=== PATIENT | female | born 1965 | race Caucasian/White ===

== ENCOUNTER 2018-10-01 17:30 | Outpatient (AMBR) | payer BC, SELFPAY ==
--- NOTE | 2018-09-25 08:16 | PT.OIERPT ---
PT OP Initial Eval Patient Information Visit Reasons: knee pain Medical Diagnosis: M17.11 Treatment Dx #1: R knee pain Start of Care: 09/25/18 Date of Onset: 2014 Initial Assessment Subjective Pt is 53 yr old female who c/o R knee pain. She tore the meniscus in 2014 and it was repaired and since then she has to wear a knee brace or she says she can't last all day. The knee swells and hurts at the end of the day. She goes to the gym every morning to do the elliptical for 15' but no leg machines. She denies pain today since it's early and she is a medical unit secretary. PMH: DM, HTN, meniscal repair 2014 R knee Imaging: X-ray, MRI in EMR, reviewed Pt goal: to get some pain relief in that knee Objective R knee AROM: Flexion: full Extension: full with hesitation and sometimes pain SLR: 45 deg Strength: L quads 4-/5 limited by patella compression pain, hamstrings 4+/5 Observation: B varus orientation Palpation: moderately TTP medial patella border and medial joint line and tibial plateau Special testing: Patella compression: positive Anterior drawer: negative Varus/Valgus: minimal gapping Falguni's: positive Assessment Pt presentation consistent with referring Dx of R knee OA with patella compression sensitivity. Pt has good ROM but quad strength is limited by patella sensitivity. These findings are consistent with X-ray results, moderate narrowing medial joint space right knee. Eval followed by [facility]P. Short Term and Intermediate Goals 1. Independent with [facility]P 2. Improved quad strength to 4+/5 3. Pt will squat to 75% depth x10 without increase in knee pain Treatment Plan 1. Manual therapy 2. Therex 3. Modalities as indicated, moist heat, ice, estim Frequency and Duration 2x a week for 6 weeks Certification Dates: 09/25/18 to 12/23/18 Office Procedures PT Procedures PT Date of Service: 09/25/18 OP PT Eval Mod Complex 30 minutes: Yes
--- NOTE | 2018-09-25 08:20 | PTNOTE_ITS ---
PT OP Initial Eval Patient Information Visit Reasons: knee pain Medical Diagnosis: M17.11 Treatment Dx #1: R knee pain Start of Care: 09/25/18 Date of Onset: 2014 Initial Assessment Subjective Pt is 53 yr old female who c/o R knee pain. She tore the meniscus in 2014 and it was repaired and since then she has to wear a knee brace or she says she can' t last all day. The knee swells and hurts at the end of the day. She goes to the gym every morning to do the elliptical for 15' but no leg machines. 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 PMH: DM, HTN, meniscal repair 2014 R knee Imaging: X-ray, MRI in EMR, reviewed Pt goal: to get some pain relief in that knee Objective R knee AROM: Flexion: full Extension: full with hesitation and sometimes pain SLR: 45 deg Strength: L quads 4-/5 limited by patella compression pain, hamstrings 4+/5 Observation: B varus orientation Palpation: moderately TTP medial patella border and medial joint line and tibial plateau Special testing: Patella compression: positive Anterior drawer: negative Varus/Valgus: minimal gapping Falguni's: positive Assessment Pt presentation consistent with referring Dx of R knee OA with patella compression sensitivity. Pt has good ROM but quad strength is limited by patella sensitivity. These findings are consistent with X-ray results, moderate narrowing medial joint space right knee. Eval followed by [facility]P. Short Term and Skilled Nursing Goals 1. Independent with [facility]P 2. Improved quad strength to 4+/5 3. Pt will squat to 75% depth x10 without increase in knee pain Treatment Plan 1. Manual therapy 2. Therex 3. Modalities as indicated, moist heat, ice, estim Frequency and Duration 2x a week for 6 weeks Certification Dates: 09/25/18 to 12/23/18 Office Procedures PT Procedures PT Date of Service: 09/25/18 OP PT Eval Mod Complex 30 minutes: Yes
--- NOTE | 2018-10-01 18:19 | PTNOTE_ITS ---
PT Outpatient Daily Note Date of Service: October 01, 2018 OP Daily Note Visit Reasons: knee pain Outpatient Physical Therapy Treatment Date: 10/01/18 Subjective: The R knee is hurting today. She did the elliptical this morning and then drove and then sits for most of the day and then drives home. Objective: See F/S for therex MT: STM with graston to medial joint line femoral condyle region, KTape to anterior knee x15' total Assessment: Very TTP over R medial femoral condyle and joint line, poor STM tolerance. Plan: Continue per POC Length of Time (minutes) of Treatment: 30 Minutes Office Procedures PT Procedures PT Date of Service: 09/25/18 OP PT Eval Mod Complex 30 minutes: Yes PT Procedures PT Date of Service: 10/01/18 Therapeutic Exercise 15 minutes: Yes Manual Crime Victim Specialist 15 minutes: Yes
== END 2018-10-04 23:59 | disposition home or self-care (01) ==
PROVIDERS: PCP Family Medicine; Referring Provider Family Medicine; Visit Provider Orthopaedic Surgery
DX: M25.561 Pain in right knee (principal)
CPT/HCPCS: 97110; 97140; 97162

== ENCOUNTER 2018-11-01 17:30 | Outpatient (AMBR) | payer OTHER, SELFPAY ==
--- NOTE | 2018-10-05 10:02 | PT.ODAYNRPT ---
PT Outpatient Daily Note Date of Service: October 05, 2018 OP Daily Note Visit Reasons: knee pain Outpatient Physical Therapy Treatment Date: 10/05/18 Subjective: pt states she goes to the gym almost everyday and notices her quads are tight. Objective: see flow sheet. Assessment: noticed during SLR plus ER of the R knee pt tends to flex the knee slightly and cued her to keep her extended. informed pt it could be due to tightness. pt demonstrates good mobility of the RLE. during STM using the thera bar noticed the quads were tight and pt did have some discomfort. demonstrated a quad stretch she could be doing prior to starting her gym session. pt understood and answered her questions. Plan: continue POC per PT. Length of Time (minutes) of Treatment: 30 Minutes Office Procedures PT Procedures PT Date of Service: 10/05/18 Therapeutic Exercise 30 minutes: Yes
--- NOTE | 2018-10-08 15:12 | PT.ODAYNRPT ---
PT Outpatient Daily Note Date of Service: October 08, 2018 OP Daily Note Visit Reasons: knee pain Outpatient Physical Therapy Treatment Date: 10/08/18 Subjective: pt reported feeling sore after last visit. pt still has the kinesio tape from the 1st day of PT as it has not fallen off. Objective: see flow sheet. Assessment: added new exercises for WB, weight shifting onto the RLE and strengthening. pt did not have difficulty with any of them but she was aware of possible soreness. observed pt's R knee and she still has the tape on and advised pt to let it fall off on its own. no compensation with new exercises. pt had some muscle fatigue but nothing extreme. ice pack post ther ex. Plan: continue POC per PT. Length of Time (minutes) of Treatment: 30 Minutes Office Procedures PT Procedures PT Date of Service: 10/08/18 Therapeutic Exercise 30 minutes: Yes PT Procedures PT Date of Service: 10/05/18 Therapeutic Exercise 30 minutes: Yes
--- NOTE | 2018-10-15 14:15 | PT.ODAYNRPT ---
PT Outpatient Daily Note Date of Service: October 15, 2018 OP Daily Note Visit Reasons: knee pain Outpatient Physical Therapy Treatment Date: 10/15/18 Subjective: pt doing good today but she was not sore from last visit. pt states she using the brace less and noticed her knee stronger. Objective: see flow sheet. Assessment: increased the number of laps during ther ex inside the PB. added mini squats inside the PB for safety and she did well. pt demonstrates good posture with good ROM of the hip and needs during squats. pt did not c/o increased pain after squats. ice pack post ther ex. advised pt keep the brace off as much as possible to help strengthen the muscles without compensation. Plan: continue POC per PT. Length of Time (minutes) of Treatment: 30 Minutes Office Procedures PT Procedures PT Date of Service: 10/08/18 Therapeutic Exercise 30 minutes: Yes PT Procedures PT Date of Service: 10/05/18 Therapeutic Exercise 30 minutes: Yes PT Procedures PT Date of Service: 10/15/18 Therapeutic Exercise 30 minutes: Yes
--- NOTE | 2018-10-22 12:50 | PTNOTE_ITS ---
PT Outpatient Daily Note Date of Service: October 22, 2018 OP Daily Note Visit Reasons: knee pain Outpatient Physical Therapy Treatment Date: 10/22/18 Subjective: The K tape helped the knee feel better. Wants to re-tape today. Overall she has good days and bad days with variable knee pain Objective: See F/S for therex MT: K-tape to anterior knee x10' Assessment: Good exercise tolerance with low tissue irritability Plan: Continue per POC Length of Time (minutes) of Treatment: 30 Minutes Office Procedures PT Procedures PT Date of Service: 10/08/18 Therapeutic Exercise 30 minutes: Yes PT Procedures PT Date of Service: 10/22/18 Therapeutic Exercise 15 minutes: Yes Manual Journeyman Press Operator 15 minutes: Yes PT Procedures PT Date of Service: 10/05/18 Therapeutic Exercise 30 minutes: Yes PT Procedures PT Date of Service: 10/15/18 Therapeutic Exercise 30 minutes: Yes
--- NOTE | 2018-10-25 17:21 | PT.ODAYNRPT ---
PT Outpatient Daily Note Date of Service: October 25, 2018 OP Daily Note Visit Reasons: knee pain Outpatient Physical Therapy Treatment Date: 10/25/18 Subjective: The K tape helped the knee feel better. Overall she has good days and bad days with variable knee pain Objective: See F/S for therex MT: manual knee distraction with strap x10' long axis Assessment: Good exercise tolerance with low tissue irritability. Good relief after manual therapy today. Plan: Continue per POC Length of Time (minutes) of Treatment: 30 Minutes Office Procedures PT Procedures PT Date of Service: 10/08/18 Therapeutic Exercise 30 minutes: Yes PT Procedures PT Date of Service: 10/22/18 Therapeutic Exercise 15 minutes: Yes Manual Industrial Methods Consultant 15 minutes: Yes PT Procedures PT Date of Service: 10/25/18 Therapeutic Exercise 15 minutes: Yes Manual Industrial Methods Consultant 15 minutes: Yes PT Procedures PT Date of Service: 10/05/18 Therapeutic Exercise 30 minutes: Yes PT Procedures PT Date of Service: 10/15/18 Therapeutic Exercise 30 minutes: Yes
--- NOTE | 2018-10-30 18:55 | PT.ODAYNRPT ---
PT Outpatient Daily Note Date of Service: October 30, 2018 OP Daily Note Visit Reasons: knee pain Outpatient Physical Therapy Treatment Date: 10/30/18 Subjective: The K tape helped the knee feel better. Overall she has good days and bad days with variable knee pain Objective: See F/S for therex MT: K tape anterior knee x10' Assessment: Good relief with K tape on anterior knee. She has quad inhibition and crepitus under patella. Plan: Continue per POC Length of Time (minutes) of Treatment: 30 Minutes Office Procedures PT Procedures PT Date of Service: 10/08/18 Therapeutic Exercise 30 minutes: Yes PT Procedures PT Date of Service: 10/22/18 Therapeutic Exercise 15 minutes: Yes Manual Tile Power Shear Operator 15 minutes: Yes PT Procedures PT Date of Service: 10/25/18 Therapeutic Exercise 15 minutes: Yes Manual Tile Power Shear Operator 15 minutes: Yes PT Procedures PT Date of Service: 10/30/18 Therapeutic Exercise 15 minutes: Yes Manual Tile Power Shear Operator 15 minutes: Yes PT Procedures PT Date of Service: 10/05/18 Therapeutic Exercise 30 minutes: Yes PT Procedures PT Date of Service: 10/15/18 Therapeutic Exercise 30 minutes: Yes
--- NOTE | 2018-11-01 18:09 | PT.ODS1RPT ---
PT OP Progress/Discharge Note Date of Service: November 01, 2018 Progress Note/DC Note Progress Note/Discharge Note: DC Note Patient Information Visit Reasons: knee pain Service Continue Service or Discharge: Discharge Discharge Date: 11/01/18 Status Subjective: Pt reports the R knee pain is variable depending on activity. The K tape helps the knee feel better and she is going to order some to do herself. Objective: R knee AROM: Flexion full Extension: full Strength: Quads: 4+/5 HS: 4+5 Squat to 75% depth x10 Assessment: Pt has attended 8 Rx sessions and made good progress and met therapy goals. She has improved quad strength to 4+/5 and can squat x10 with minimal increase in knee pain. She has resumed normal work duties and goes to the gym every day. Plan: D/C with [facility] Office Procedures PT Procedures PT Date of Service: 10/08/18 Therapeutic Exercise 30 minutes: Yes PT Procedures PT Date of Service: 10/22/18 Therapeutic Exercise 15 minutes: Yes Manual Facilities Administrator 15 minutes: Yes PT Procedures PT Date of Service: 10/25/18 Therapeutic Exercise 15 minutes: Yes Manual Facilities Administrator 15 minutes: Yes PT Procedures PT Date of Service: 10/30/18 Therapeutic Exercise 15 minutes: Yes Manual Facilities Administrator 15 minutes: Yes PT Procedures PT Date of Service: 10/05/18 Therapeutic Exercise 30 minutes: Yes PT Procedures PT Date of Service: 10/15/18 Therapeutic Exercise 30 minutes: Yes PT Procedures PT Date of Service: 11/01/18 Therapeutic Exercise 30 minutes: Yes
== END 2018-11-01 18:08 | disposition home or self-care (01) ==
PROVIDERS: PCP Family Medicine; Referring Provider Family Medicine; Visit Provider Orthopaedic Surgery
DX: M25.561 Pain in right knee (principal)
CPT/HCPCS: 97110; 97140

== ENCOUNTER → 2025-06-06 | Outpatient (CLI) | payer OTHER, SELFPAY ==
--- NOTE | 2025-06-06 14:15 | XR_ITS ---
Examination: Screening digital mammography, bilateral Computer aided detection 3-D breast Tomosynthesis, bilateral Date and time of exam: June 06, 2025, 1424 hours, compared to mammograms dating to January 24, 2020 Indication: Screening Technique: Nonmagnified MLO, CC views of the breasts to been obtained, reconstructed from 3-D Tomosynthesis images. R2 computer aided detection program utilized for evaluation of suspicious masses and/or abnormal calcifications. 3-D Tomosynthesis images obtained. Findings: The breasts are heterogeneously dense, which may obscure small masses Benign calcifications No suspicious masses noted Impression: BI-RADS category II: Benign Findings. Recommend 1 year follow-up mammogram.
== END | disposition home or self-care (01) ==
LOC: CDIM 14:13
PROVIDERS: Referring Provider Internal Medicine; Visit Provider Internal Medicine
DX: Z12.31 Encounter for screening mammogram for malignant neoplasm of breast (principal); R92.323 Mammographic fibroglandular density, bilateral breasts; R92.1 Mammographic calcification found on diagnostic imaging of breast
CPT/HCPCS: 77063; 77067